=== PATIENT | female | born 1995 | race Caucasian/White ===

== ENCOUNTER 2017-08-21 16:51 | Emergency (ER) | payer SELFPAY ==
[2017-08-21 17:01] VITALS: O2SAT 97
[2017-08-21 18:16] LABS: BASO # 0.1 K/uL (0.0-0.2); BASO % 0.7 % (0.0-2.0); EOS # 0.1 K/uL (0.0-0.7); EOS % 0.8 % (0.0-4.0); HEMATOCRIT 41.3 % (34.0-47.0); LYMPH # 2.6 K/uL (1.0-4.3); LYMPH % 24.9 % (20.0-40.0); MEAN CORPUSCULAR HEMOGLOBIN 28.7 pg (27.0-31.0); MEAN CORPUSCULAR HGB CONC 33.7 g/dL (33.0-37.0); MEAN PLATELET VOLUME 8.4 fL (7.2-11.7); MONO # 0.5 K/uL (0.0-0.8); MONO % 4.5 % (0.0-10.0); WHITE BLOOD COUNT 10.5 K/uL (4.8-10.8)
--- NOTE | 2017-08-21 18:16 | C.PDOC ---
History Of Present Illness <Milly Mina - Last Filed: 08/21/17 19:21> <Spencer Haddad - Last Filed: 08/21/17 20:20> 21 y/o female with history of irregular menses presents to ED with complaints of intermittent vomiting for 2 weeks and abdominal "soreness" for 2-3 days. Patient states when she eats she gets full easily and reports small bowel movement today. Patient denies fever, chills, diarrhea, dysuria, hematuria or any other complaints at this time. LMP 2 months ago (Milly Mina) History Per: Patient History/Exam Limitations: no limitations Onset/Duration Of Symptoms: Days Current Symptoms Are (Timing): Still Present Location Of Pain/Discomfort: RUQ, Epigastric Radiation Of Pain To:: None <Milly Mina - Last Filed: 08/21/17 19:21> <Spencer Haddad - Last Filed: 08/21/17 20:20> Time Seen by Provider: 08/21/17 17:40 Chief Complaint (Nursing): Abdominal Pain Past Medical History Reviewed: Historical Data, Nursing Documentation, Vital Signs - Medical History PMH: Bronchitis Surgical History: No Surg Hx Family History: States: No Known Family Hx - Social History Hx Tobacco Use: No Hx Alcohol Use: Yes Hx Substance Use: No - Immunization History Hx Tetanus Toxoid Vaccination: No Hx Influenza Vaccination: No Hx Pneumococcal Vaccination: No <Milly Mina - Last Filed: 08/21/17 19:21> Vital Signs: Last Vital Signs Temp 99 F 08/21/17 19:56 Pulse 82 08/21/17 19:56 Resp 18 08/21/17 19:56 BP 131/71 08/21/17 19:56 Pulse Ox 97 08/21/17 19:56 Review Of Systems Constitutional: Negative for: Fever, Chills Gastrointestinal: Positive for: Vomiting, Abdominal Pain. Negative for: Diarrhea Genitourinary: Negative for: Dysuria, Hematuria Skin: Negative for: Rash <Milly Mina - Last Filed: 08/21/17 19:21> Physical Exam - Physical Exam Appears: Non-toxic, No Acute Distress, Other (Morbidly obese) Skin: Normal Color, Warm, Dry, No Rash Head: Atraumatic, Normacephalic Eye(s): bilateral: Normal Inspection Oral Mucosa: Moist Neck: Normal ROM, Supple Chest: Symmetrical Cardiovascular: Rhythm Regular Respiratory: Normal Breath Sounds, No Rales, No Rhonchi, No Wheezing Gastrointestinal/Abdominal: Bowel Sounds, Soft, Tenderness (Epigastric and RUQ) , No Guarding, No Rebound, Other (?[place] sign ) Back: No CVA Tenderness Neurological/Psych: Oriented x3 <Milly Mina - Last Filed: 08/21/17 19:21> ED Course And Treatment - Laboratory Results Result Diagrams: 08/21/17 18:10 08/21/17 18:10 O2 Sat by Pulse Oximetry: 97 (RA) Pulse Ox Interpretation: Normal <Milly Mina - Last Filed: 08/21/17 19:21> - Laboratory Results Result Diagrams: 08/21/17 18:10 08/21/17 18:10 <Spencer Haddad - Last Filed: 08/21/17 20:20> Medical Decision Making <Milly Mina - Last Filed: 08/21/17 19:21> <Spencer Haddad - Last Filed: 08/21/17 20:20> Medical Decision Making: Plan: Pepcid, Zofran, Blood Work, UA (Milly Mina) Disposition - Disposition Disposition Time: 19:20 <Milly Mina - Last Filed: 08/21/17 19:21> Counseled Patient/Family Regarding: Studies Performed, Diagnosis, Need For Followup <Spencer Haddad - Last Filed: 08/21/17 20:20> - Disposition Referrals: [facility] [Outside] [facility] [Outside] Disposition: HOME/ ROUTINE Condition: FAIR Additional Instructions: Must follow up with the clinic, regarding your high sugars Prescriptions: Nitrofurantoin Macrocrystals [Macrobid] 1 cap PO BID #[id number] cap Instructions: Diabetic Hyperglycemia (ED), Abdominal Pain (ED), Urinary Tract Infection in Women (DC) Forms: [employer] (Bulgarian) - Clinical Impression Clinical Impression: Abdominal pain, Hyperglycemia, UTI (urinary tract infection) - PA / PROFESSOR OF LAW / Resident Statement MD/DO has reviewed & agrees with the documentation as recorded. - Scribe Statement The provider has reviewed the documentation as recorded by the Scribe <Milly Mina - Last Filed: 08/21/17 19:21> <Spencer Haddad - Last Filed: 08/21/17 20:20> - Scribe Statement Brown Llanos All medical record entries made by the Scribe were at my direction and personally dictated by me. I have reviewed the chart and agree that the record accurately reflects my personal performance of the history, physical exam, medical decision making, and the department course for this patient. I have also personally directed, reviewed, and agree with the discharge instructions and disposition. (Milly Mina) Physician Patient Turnover Patient Signed Over To: Spencer Haddad Handoff Comments: f/u sonogram, blood sugar, and dispo accordingly <Milly Mina - Last Filed: 08/21/17 19:21>
[2017-08-21 18:25] LABS: RBC URINE 31 /hpf (0-3); URINE BILIRUBIN NEGATIVE (NEGATIVE); URINE BLOOD 1+ (NEGATIVE); URINE COLOR Yellow (YELLOW); URINE GLUCOSE (UA) 3+ mg/dL (Normal); URINE KETONE NEGATIVE (NEGATIVE); URINE LEUKOCYTE ESTERASE 3+ Leu/uL (Negative); URINE PROTEIN NEGATIVE (NEGATIVE); URINE UROBILINOGEN NORMAL mg/dL (0.2-1.0); WBC URINE 24 /hpf (0-5)
[2017-08-21 18:26] LABS: ALB/GLOB RATIO 1.2 (1.0-2.1); ALKALINE PHOSPHATASE 89 U/L (38-126); ALT/SGPT 32 U/L (9-52); AST/SGOT 14 U/L (14-36); BILIRUBIN,TOTAL 0.6 mg/dL (0.2-1.3); BLOOD UREA NITROGEN 6 mg/dL (7-17); CALCIUM 7.8 mg/dl (8.6-10.4); CARBON DIOXIDE 27 mmol/L (22-30); CHLORIDE 95 mmol/L (98-107); GFR AFRICAN-AMERICAN > 60; GLUCOSE,RANDOM 394 mg/dL (65-105); POTASSIUM 3.8 mmol/L (3.6-5.2); SODIUM 136 mmol/L (132-148); TOTAL PROTEIN 6.9 g/dL (6.3-8.3); URINE BACTERIA FEW (<OCC)
[2017-08-21] MEDS ORDERED: Lactated Ringer's 1,000 ML IV ONE (19:15)
--- NOTE | 2017-08-21 19:36 | US ---
EXAM: US Abdomen Limited, Right Upper Quadrant EXAM DATE/TIME: Exam ordered 08/21/2017 6:03 PM CLINICAL HISTORY: 21 years old, female; Pain; Abdominal pain; Additional info: Ruq and epigastric pain TECHNIQUE: Real-time ultrasound of the right upper quadrant with image documentation. COMPARISON: No relevant prior studies available. FINDINGS: Liver: The liver is increased in echotexture and measures at least 25 cm in craniocaudal span. There is some attenuation as it passes through the liver. Normal blood flow direction is seen in the main portal vein. There appears to be dampening of the normal waveform in the left hepatic vein. No intrahepatic bile duct dilation. Gallbladder: The gallbladder is fluid filled. No gallstones are seen. Common bile duct: The common bile duct measures 4 mm. No stones. No dilation. Pancreas: Unremarkable as visualized. Right kidney: The right kidney measures 13.8 x 4.4 x 4.4 cm. No stones. No hydronephrosis. Aorta: The mid and distal abdominal aorta are not well-seen due to bowel gas. IMPRESSION: 1. Hepatic steatosis. 2. Dampening of the normal hepatic vein waveform. This may be related to technical factors as the acoustic window was suboptimal. It could also be related to relative venous outflow obstruction which in this case may be secondary to fatty infiltration
[2017-08-21 19:57] VITALS: BP 131/71; PULSE 82; RESP 18; TEMP 99
[2017-08-21 19:57] LABS: VENOUS BLOOD GAS PCO2 45 mmHg (40-60); VENOUS BLOOD PH 7.38 (7.32-7.43)
== END 2017-08-21 20:41 | disposition home or self-care (01) ==
LOC: C.ER 16:51
DX: N39.0 Urinary tract infection, site not specified (principal); R73.9 Hyperglycemia, unspecified; R10.11 Right upper quadrant pain
CPT/HCPCS: 76705; 80053; 81001; 82009; 82803; 82948; 83690; 85025; 96374; 96375; 99285; J2405; J7120